=== PATIENT | female | born 1995 | race American Indian/Alaskan Native ===

== ENCOUNTER 2023-03-12 21:42 | Inpatient (IN) | payer MEDICAID ==
[~2023-03-12] VITALS: Ht 157.5 cm; Wt 56.7 kg
--- NOTE | 2023-03-12 23:10 | NUR ---
BIBSELF FROM HOME WITH CC OF UPPER ABDL PAIN PS 03/10 X2DAYS . TOOK TUMS AND MOTRIN 2 TABS NO RELIEF. VOMITED ONCE YESTERDAY. PT A/OX4. TOLERATING R/A WELL WITH NO RESP DISTRESS. SAFETY MEASURES IN PLACE.
--- NOTE | 2023-03-12 23:15 | NUR ---
URINE COLLECTED AND SENT TO LAB
[2023-03-12] MEDS ORDERED: IV NS 0.9% 1,000 ML BAG IV ONE (23:30)
[2023-03-12] MEDS ORDERED: FAMOTIDINE/PF INJ 20 MG/2 ML VIAL IV ONE ×2 (23:30)
--- NOTE | 2023-03-12 23:44 | NUR ---
IV RAC #18G S/L BLOOD COLLECTED AND SENT TO LAB
[2023-03-12 23:51] LABS: BASOPHILS % (AUTO) 0.3 % (0.0-2.0); EOSINOPHILS % (AUTO) 1.2 % (0.0-6.0); HEMATOCRIT 40 % (33-45); HEMOGLOBIN 13.1 g/dL (11.5-14.8); LYMPHOCYTES # (AUTO) 1.9 K/uL (0.8-4.8); MEAN CORPUSCULAR HGB CONC 33 g/dl (31.0-36.0); MEAN CORPUSCULAR VOLUME 90 fL (82-100); MONOCYTES # (AUTO) 0.5 K/uL (0.1-1.30); MONOCYTES % (AUTO) 4.8 % (2.0-12.0); NEUTROPHILS # (AUTO) 8.1 K/uL (1.8-8.9); NEUTROPHILS % (AUTO) 75.7 % (43.0-81.0); PLATELET COUNT (AUTO) 299 K/uL (150-450); RED BLOOD CELL COUNT(AUTO) 4.44 MIL/uL (4.0-5.2); WHITE BLOOD COUNT (AUTO) 10.7 K/uL (4.3-11.0)
[2023-03-12] MEDS ORDERED: PANTOPRAZOLE 40 MG/PACK PACK ONE (23:51)
[2023-03-12 23:55] LABS: BILIRUBIN,URINE NEGATIVE (NEGATIVE); COLOR,URINE YELLOW (YELLOW); LEUKOCYTE ESTERASE ,URINE NEGATIVE (NEGATIVE); NITRITE, URINE NEGATIVE (NEGATIVE); PROTEIN,URINE NEGATIVE (NEGATIVE); UGLUCOSE NEGATIVE (NEGATIVE); UROBILINOGEN,URINE 0.2 EU/dL (0.2)
[2023-03-13] MEDS ORDERED: PANTOPRAZOLE 40 MG/PACK PACK PO ONE
[2023-03-13 00:08] LABS: CALCIUM, SERUM 9.1 mg/dL (8.5-10.1); CARBON DIOXIDE 26 mmol/L (21-32); CHLORIDE 104 mmol/L (98-107); CREATININE 0.8 mg/dL (0.6-1.3); GLUCOSE 111 mg/dL (74-106); POTASSIUM 3.8 mmol/L (3.5-5.1); SODIUM SERUM 137 mmol/L (136-145); UREA NITROGEN, BLOOD 6 mg/dL (7-18)
[2023-03-13 00:16] LABS: ALANINE AMINOTRANSFERASE 29 U/L (12-78); ALBUMIN 4.1 g/dL (3.4-5.0); ALKALINE PHOSPHATASE 57 U/L (46-116); ASPARTATE AMINOTRANSFERASE 25 U/L (15-37); BILIRUBIN,DIRECT 0.1 mg/dL (0.0-0.2); BILIRUBIN,TOTAL 0.2 mg/dL (0.2-1.0); LIPASE 100 U/L (73-393); TOTAL PROTEIN, SERUM 7.6 g/dL (6.4-8.2)
--- NOTE | 2023-03-13 01:10 | NUR ---
[facility]IVER FORM SIGNED; METROLOGIST AWARE
--- NOTE | 2023-03-13 01:12 | NUR ---
PT TAKEN TO CT VIA [facility]
--- NOTE | 2023-03-13 01:20 | NUR ---
PT RETURNED TO ER BED [address]
--- NOTE | 2023-03-13 05:28 | NUR ---
called [facility] and spoke to Erasto. looking at 5.5 hours for images to be read. will get the result in an another hour and and a half!
--- NOTE | 2023-03-13 07:42 | NUR ---
ULTRASOUND AT BEDSIDE
--- NOTE | 2023-03-13 10:07 | NUR ---
PAGED DR. HARDIN
[2023-03-13] MEDS ORDERED: PIPERACILLIN /TAZOBACTAM 3.375 G in IV D5W 50 ML IV ONE (10:30)
--- NOTE | 2023-03-13 11:03 | NUR ---
BED GIVEN 329
--- NOTE | 2023-03-13 11:28 | NUR ---
REPORT GIVEN TO CONCHITA FOR [facility]
--- NOTE | 2023-03-13 11:40 | NUR ---
PT TAKEN TO MED SURG FLOOR IN STABLE CONDITION
[2023-03-13] MEDS ORDERED: IV LR 500 ML IV ONE (12:00)
[2023-03-13] MEDS ORDERED: ONDANSETRON HCL/PF 4 MG/2 ML VIAL IVP PRN (12:00)
[2023-03-13] MEDS ORDERED: Z GUARD REMEDY 4 OZ OINT TP PRN (12:00)
[2023-03-13] MEDS ORDERED: ACETAMINOPHEN 325 MG TABLET PO PRN (12:00)
--- NOTE | 2023-03-13 12:00 | NUR ---
MS EQUIPMENT SUPERINTENDENT NOTES ADMITTED THIS 27 YO FEMALE FOR ACUTE CHOLECYSTITIS ARRIVED AT ROOM 329-1 VIA GURNEY ACCOMPANIED BY 1 STAFF AT 1145, AOX4, ABLE TO MAKE NEEDS KNOWN, COOPERATIVE, PATIENT IS BREATHING WITHOUT DIFFICULTY ON ROOM AIR, DENIED PAIN, DISCOMFORT, N/V. IV ACCESS ON RIGHT AC G#18 SALINE LOCKED, AWAITING IVF ORDERS. HEAD TO TOE ASSESSMENT DONE, VITAL SIGNS TAKEN AND RECORDED, STABLE. SKIN IS INTACT. PATIENT IS AMBULATORY. ALL BELONGINGS ACCOUNTED FOR. ORIENTED TO ROOM AND STAFF. SAFETY MEASURES IN PLACE: BED IN LOWEST AND LOCKED POSITION, SIDE RAILS UP X2, CALL LIGHT AND TRAY TABLE WITHIN EASY REACH. WILL CONTINUE TO MONITOR.
--- NOTE | 2023-03-13 13:21 | NUR ---
RN NOTES - PATIENT SIGNED CONSENTS FOR [facility], TAKEN TO [facility] BY STAFF
[2023-03-13] MEDS ORDERED: IV LR 1000 ML 1,000 ML IV ONE (13:30)
--- NOTE | 2023-03-13 15:51 | NUR ---
RN NOTES - PATIENT IS BACK FROM [facility] HOWEVER THEY WILL NEED TO DO ANOTHER ROUND PER TECH.
[2023-03-13 16:00] VITALS: BP 113/71
[2023-03-13] MEDS ORDERED: CRAN425C6 PO (16:34)
[2023-03-13] MEDS ORDERED: [UNRECOGNIZED DRUG - CODE] PO (16:34)
[2023-03-13] MEDS ORDERED: BIOT10004 PO (16:34)
[2023-03-13] MEDS ORDERED: OMEG1CAP PO (16:34)
--- NOTE | 2023-03-13 17:33 | NUR ---
RN NOTES - PATIENT WAS SENT TO THE [facility] AGAIN FOR RE-IMAGING
[2023-03-13] MEDS: PIPERACILLIN /TAZOBACTAM 3.375 G in IV D5W 50 ML IV SCH (17:55)
--- NOTE | 2023-03-13 18:48 | NUR ---
MS RN CLOSING NOTES PT IS RESTING IN BED COMFORTABLY, AOX4, ABLE TO MAKE NEEDS KNOWN, STABLE ON ROOM AIR WITHOUT BREATHING DIFFICULTY. DENIED PAIN NOR DISCOMFORT. S/P [facility] SCAN, AWAITING OFFICIAL RESULTS. IV ACCESS ON RIGHT AC G#18 WITH LR 80 ML/HR RUNNING, FLUSHING WELL. ALL DUE MEDS GIVEN, ALL NEEDS MET. SAFETY MEASURES MAINTAINED: SIDE RAILS UP X2, CALL LIGHT AND TRAY TABLE WITHIN EASY REACH. WILL ENDORSE TO CAPPER MACHINE OPERATOR NURSE.
--- NOTE | 2023-03-13 19:30 | NUR ---
MS RN OPENING NOTE PATIENT AWAKE IN BED, ALERT/ORIENTED X 4, PT ABLE TO MAKE NEEDS KNOWN. PATIENT DENIES PAIN, N/V AT THIS TIME. PATIENT STABLE ON RA, NO S/S OF DISTRESS OR SOB NOTED, BREATHING EVEN AND UNLABORED. IV ACCESS ON RAC #18G INTACT AND INFUSING LR @ 80 ML/HR. PATIENT AMBULATORY WITH STEADY GAIT. SAFETY MEASURES IN PLACE: CALL LIGHT WITHIN REACH, SIDE RAILS UP X 2, BED LOCKED IN LOWEST POSITION. WILL CONTINUE TO MONITOR PATIENT
[2023-03-13 20:00] VITALS: BP 101/49
[2023-03-14 05:54] LABS: BASOPHILS % (AUTO) 0.5 % (0.0-2.0); EOSINOPHILS % (AUTO) 4.5 % (0.0-6.0); HEMATOCRIT 38 % (33-45); HEMOGLOBIN 12.8 g/dL (11.5-14.8); LYMPHOCYTES # (AUTO) 2.6 K/uL (0.8-4.8); LYMPHOCYTES % (AUTO) 43.6 % (20.0-44.0); MEAN CORPUSCULAR HGB CONC 34 g/dl (31.0-36.0); MEAN CORPUSCULAR VOLUME 88 fL (82-100); MONOCYTES # (AUTO) 0.3 K/uL (0.1-1.30); MONOCYTES % (AUTO) 5.8 % (2.0-12.0); NEUTROPHILS # (AUTO) 2.7 K/uL (1.8-8.9); NEUTROPHILS % (AUTO) 45.6 % (43.0-81.0); PLATELET COUNT (AUTO) 268 K/uL (150-450); RED BLOOD CELL COUNT(AUTO) 4.29 MIL/uL (4.0-5.2)
[2023-03-14] MEDS: PIPERACILLIN /TAZOBACTAM 3.375 G in IV D5W 50 ML IV SCH ×6 (06:00→23:59)
[2023-03-14 06:18] LABS: ALBUMIN 3.5 g/dL (3.4-5.0); BILIRUBIN,TOTAL 0.8 mg/dL (0.2-1.0); CALCIUM, SERUM 8.8 mg/dL (8.5-10.1); CREATININE 0.9 mg/dL (0.6-1.3); MAGNESIUM 2.1 mg/dL (1.8-2.4); PHOSPHORUS 5.5 mg/dL (2.5-4.9); POTASSIUM 3.8 mmol/L (3.5-5.1); TOTAL PROTEIN, SERUM 6.8 g/dL (6.4-8.2)
--- NOTE | 2023-03-14 06:49 | NUR ---
MS RN CLOSING NOTE PATIENT AWAKE IN BED, ALERT/ORIENTED X 4, PT ABLE TO MAKE NEEDS KNOWN. NO ABDOMINAL PAIN, NAUSEA OR VOMITING REPORTED THIS SHIFT. PATIENT STABLE ON RA, NO S/S OF DISTRESS OR SOB NOTED, BREATHING EVEN AND UNLABORED. IV ACCESS ON RAC #18G INTACT AND SALINE LOCKED. MEDICATIONS GIVEN ORDERED, PT NEEDS MET THROUGHOUT SHIFT. PATIENT AMBULATORY WITH STEADY GAIT. SAFETY MEASURES IN PLACE: CALL LIGHT WITHIN REACH, SIDE RAILS UP X 2, BED LOCKED IN LOWEST POSITION. WILL ENDORSE TO DAYSHIFT RN FOR CONTINUITY OF CARE
--- NOTE | 2023-03-14 07:30 | NUR ---
MS RN OPENING NOTE (DAY SHIFT) PATIENT OBSERVED SLEEPING PEACEFULLY, EASILY AROUSED, ALERT AND ORIENTED X 4. DENIES ANY DISCOMFORT AT THIS TIME. PATIENT IS AMBULATORY WITH STEADY GAIT. SAFETY MEASURES IN PLACE: CALL LIGHT WITHIN REACH, SIDE RAILS UP X 2, BED LOCKED IN LOWEST POSITION. WILL CONTINUE TO CARE FOR AND MONITOR PATIENT PER HOSPITALIST'S POC.
[2023-03-14] MEDS: PANTOPRAZOLE 40 MG TABLET.DR PO SCH (08:06)
[2023-03-14 09:00] VITALS: BP 107/64
[2023-03-14 18:49] VITALS: BP 117/78
[2023-03-14 20:00] VITALS: BP 115/73
--- NOTE | 2023-03-14 20:03 | NUR ---
MS KRISTY INITIAL NOTES Received pt in bed awake and alert with IVF still infusing on her right AC . Denies any pain or any discomfort. Patient is aware of her surgery tomorrow. No signs of any distress noted. i told her that she will be NPO after Midnight . Kept her warm and comfortable at all times. Friend at the bedside will continue monitoring.
[2023-03-15] MEDS: PIPERACILLIN /TAZOBACTAM 3.375 G in IV D5W 50 ML IV SCH ×3 (06:05→18:26)
[2023-03-15] MEDS: PANTOPRAZOLE 40 MG TABLET.DR PO SCH (07:30)
--- NOTE | 2023-03-15 07:30 | NUR ---
ms rn received on bed,awake,alert,oriented x4,not in any form of distress, respirations even and unlabored,no sob noted, came in w/ abd pain ,cholelithiasis, denies nausea ,no pain noted, for surgery today.
--- NOTE | 2023-03-15 07:36 | NUR ---
MS SUPERVISOR SHUTTLE PREPARATION CLOSING NOTES PT SEEN IN HER BED RESTING BUT AROUSE EASILY, SHE'S AWARE OF HER SURGERY , ALL THE CONSENT SIGNED, IVF STILL INFUSING. NPO SINCE MIDNIGHT. STABLE THROUGHOUT THE NIGHT . NO SIGNS OF ANY PAIN OR DISCOMFORT. ALL DUE MEDS GIVEN AND ALL NEEDS MET. ENDORSE TO AM NURSE .
[2023-03-15 08:00] VITALS: BP 94/54
--- NOTE | 2023-03-15 12:00 | NUR ---
ms rn on bed, no distress noted.
[2023-03-15] MEDS ORDERED: LIDOCAINE 1% INJ 50 ML MDV IJ ONE (13:02)
[2023-03-15] MEDS ORDERED: BUPIVACAINE MPF W/EPI 0.25% 30 ML VIAL ONE (13:02)
[2023-03-15 16:00] VITALS: BP 95/56
--- NOTE | 2023-03-15 18:00 | NUR ---
ms rn patient went down to or for lap yael, all needs attended.
--- NOTE | 2023-03-15 19:30 | NUR ---
RN Note Patient is still in OR for Laparoscopic Cholecystectomy.
[2023-03-15] MEDS ORDERED: FENTANYL PF 250MCG/5ML AMPUL ONE (19:45)
[2023-03-15] MEDS ORDERED: MIDAZOLAM HCL 2 MG/2ML VIAL ONE (19:46)
[2023-03-15] MEDS ORDERED: ROCURONIUM BROMIDE 50 MG/5 ML ONE (19:46)
[2023-03-15] MEDS ORDERED: FAMOTIDINE/PF INJ 20 MG/2 ML VIAL IV ONE (19:46)
[2023-03-15] MEDS ORDERED: HYDROMORPHONE INJ 2 MG/ML DISP.SYRIN ONE (19:46)
[2023-03-15] MEDS ORDERED: IOHEXOL 50 ML IV ONE (20:45)
[2023-03-15 22:35] VITALS: BP 125/68
--- NOTE | 2023-03-15 22:35 | NUR ---
RN Opening Note Patient came back from OR. Received patient in bed with OR staff. Patient is stable; awake, alert and oriented x 4. Placed on o2 inhalation @ 2 lpm via nasal cannula per patient's request; tolerating well saturating @ 98%. VS as follows: T 97.3, PA 70, RR 18, BP 125/68 mm hg. Not in any form of respiratory or cardiac distress. Denies any pain or discomfort. With IV access on right antecubital 18g; patent, intact and saline locked. Able to make needs known. Fall and safety precautions implemented: call light and table within reach, side rails up x 2, bed in lowest locked position. Will continue to monitor throughout shift.
[2023-03-16] MEDS: PIPERACILLIN /TAZOBACTAM 3.375 G in IV D5W 50 ML IV SCH ×3 (00:17→11:21)
[2023-03-16] MEDS: MORPHINE SULFATE INJ 2 MG/ML DISP.SYRIN IV PRN ×2 (03:51→11:31)
--- NOTE | 2023-03-16 03:51 | NUR ---
RN Note - Pain Management Patient complained of abdominal pain 8/10 pain scale. PRN Morphine inj 4mg/2ml given IV as ordered. Kept comfortable in bed. Will continue to monitor and reassess patient.
--- NOTE | 2023-03-16 06:42 | NUR ---
RN Closing Note Patient in bed; awake, a/o x 4. Still on o2 inhalation @ 2 lpm via nasal cannula; well tolerated. In no acute distress. No c/o pain or discomfort. With IV access on left hand 20g; patent, intact and saline locked. All due meds given as ordered. All needs met. Fall and safety precautions maintained. Endorsed to incoming morning for continuity of care.
--- NOTE | 2023-03-16 07:27 | NUR ---
MS RN OPENING NOTE Patient in bed, awake. A/O x 4, able to make needs known. No c/o pain or discomfort. On O2 via NC at 2lpm, tolerating well. IV access in the left hand #20g, sl. Safety precautions maintained: bed in lowest locked precautions, side rails up x 2, call light and tray table within easy reach. Will continue to monitor.
[2023-03-16 07:30] VITALS: BP 103/61
[2023-03-16] MEDS: PANTOPRAZOLE 40 MG TABLET.DR PO SCH (07:37)
--- NOTE | 2023-03-16 11:39 | NUR ---
RN NOTE Patient verbalized that she is in pain after ambulating around the unit, with the scale of 6-8/10. Will continue to monitor.
--- NOTE | 2023-03-16 14:55 | NUR ---
MS BUSINESS PROCESS ASSOCIATE NOTE Patient discharged to home in stable condition, ambulatory. A/O x 4, no c/o pain/discomfort at this time. Pt verbalized she farted 2x. Able to tolerate diet. V/S taken, stable and recorded. No skin issues noted. Clean, dry and intact surgical suture/wound in the abdomen. Pt belongings accounted for. IV access removed, dry and clean dressing applied on site. Name arm band removed. Discharge packet and instruction given to pt, verbalized understanding. MD and Charge Nurse aware of d/c. Pt left the unit at 1445.
== END 2023-03-16 14:45 | disposition home or self-care (01) | DRG 263 ==
LOC: ER 21:47 → MED 03-13 11:02
PROVIDERS: ADMIT Nurse Practitioner Acute Care; ATTEND Nurse Practitioner Acute Care
PROC: 0FT44ZZ Resection of Gallbladder, Percutaneous Endoscopic Approach (ICD-10-PCS; principal; 2023-03-15)
DX: K80.01 Calculus of gallbladder with acute cholecystitis with obstruction (principal); Z98.82 Breast implant status; K80.10 Calculus of gallbladder with chronic cholecystitis without obstruction
CPT/HCPCS: 36415; 74018; 76705-TC; 78226; 80048-TC; 80053-TC; 80076-TC; 83690-TC; 83735-TC; 84100-TC; 84484-TC; 84702-TC; 85025-TC; 85610-TC; 87040-TC; 87081-TC; 87086-TC; A4223; A9537; G0378; J0690; J1100; J1170; J2250; J2270; J2405; J2543; J2704; J2765; J3010; J3490; J7030; J7050; J7060; J7120; Q9967

== ENCOUNTER 2024-02-12 21:48 | Emergency (ER) | payer MEDICAID ==
[~2024-02-12] VITALS: Ht 157.5 cm; Wt 53.1 kg
[~2024-02-12 21:48] MED LIST: BIOT10004 PO; CRAN425C6 PO; OMEG1CAP PO; [UNRECOGNIZED DRUG - CODE] PO
[2024-02-12] MEDS ORDERED: LIDOCAINE 5% (PATCH) 1 EA PATCH TP ONE (23:03)
[2024-02-12] MEDS ORDERED: ACETAMINOPHEN 325 MG TABLET ONE (23:03)
[2024-02-12] MEDS: LIDOCAINE 5% (PATCH) 1 EA PATCH TP SCH (23:14)
[2024-02-12] MEDS: ACETAMINOPHEN 325 MG TABLET PO ONE (23:14)
[2024-02-12 23:47] LABS: BASOPHILS % (AUTO) 0.3 % (0.0-2.0); EOSINOPHILS # (AUTO) 0.2 K/uL (0.0-0.7); EOSINOPHILS % (AUTO) 1.8 % (0.0-6.0); HEMATOCRIT 38 % (33-45); HEMOGLOBIN 12.9 g/dL (11.5-14.8); LYMPHOCYTES # (AUTO) 2.8 K/uL (0.8-4.8); LYMPHOCYTES % (AUTO) 29.9 % (20.0-44.0); MEAN CORPUSCULAR HEMOGLOBIN 30 PG (26.0-33.0); MEAN CORPUSCULAR HGB CONC 34 g/dl (31.0-36.0); MEAN CORPUSCULAR VOLUME 88 fL (82-100); MONOCYTES # (AUTO) 0.5 K/uL (0.1-1.30); MONOCYTES % (AUTO) 5.7 % (2.0-12.0); NEUTROPHILS # (AUTO) 5.9 K/uL (1.8-8.9); NEUTROPHILS % (AUTO) 62.3 % (43.0-81.0); PLATELET COUNT (AUTO) 292 K/uL (150-450); RED BLOOD CELL COUNT(AUTO) 4.35 MIL/uL (4.0-5.2); RED CELL DISTRIBUTION WIDTH 13.2 % (11.5-15.0); WHITE BLOOD COUNT (AUTO) 9.4 K/uL (4.3-11.0)
[2024-02-12 23:58] LABS: CALCIUM, SERUM 8.6 mg/dL (8.5-10.1); CREATININE 0.7 mg/dL (0.6-1.3); POTASSIUM 4.5 mmol/L (3.5-5.1)
[2024-02-13 03:29] VITALS: BP 127/70; TEMP 97.9; O2SAT 99
== END 2024-02-13 03:33 | disposition home or self-care (01) ==
LOC: ER 21:52
DX: M54.2 Cervicalgia (principal); Z98.890 Other specified postprocedural states; Z60.2 Problems related to living alone
CPT/HCPCS: 36415; 72125-TC; 80048-TC; 85025-TC